=== PATIENT | female | born 1990 | race Hispanic/Latino ===

== ENCOUNTER 2017-06-19 10:35 | Emergency (ER) | payer MEDICAID ==
[~2017-06-19 10:35] MED LIST: DOCU-116 PO; MO8B PO; PREN1TAB89 PO; VALA10002 PO
[2017-06-19 11:18] LABS: BASOPHILS % (AUTO) 0.5 % (0.0-5.0); EOSINOPHILS % (AUTO) 0.9 % (0.0-8.0); HEMATOCRIT 41.2 % (36-48); LYMPHOCYTES % (AUTO) 14.3 % (21.0-51.0); MEAN CORPUSCULAR HEMOGLOBIN 33.7 pg (27.0-33.0); MEAN CORPUSCULAR HGB CONC 35.5 g/dL (32.0-36.0); MEAN CORPUSCULAR VOLUME 94.9 fL (79-99); MONOCYTES % (AUTO) 8.1 % (3.0-13.0); NEUTROPHILS % (AUTO) 76.2 % (40.0-77.0); PLATELET COUNT (AUTO) 172 K/uL (130-400); RED BLOOD CELL COUNT(AUTO) 4.34 MIL/uL (4.00-5.50); RED CELL DISTRIBUTION WIDTH 13.4 % (11.0-15.5)
[2017-06-19 11:33] LABS: CREATININE 0.6 mg/dL (0.5-1.5); POTASSIUM 3.8 mmol/L (3.5-5.1)
[2017-06-19 11:58] LABS: APPEARANCE,URINE Clear (CLEAR); BILIRUBIN,URINE Negative (NEGATIVE); COLOR,URINE Yellow (YELLOW); GLUCOSE, URINE (UA) Negative (NEGATIVE); KETONES,URINE 15 mg/dL (NEGATIVE); LEUKOCYTE ESTERASE ,URINE Negative (NEGATIVE); NITRATE,URINE Negative (NEGATIVE); OCCULT BLOOD,URINE Negative (NEGATIVE); PH,URINE 7.5 (5.0-8.0); PROTEIN,URINE Negative (NEGATIVE); UROBILINOGEN,URINE 0.2 mg/dL (0.2-1.0)
[2017-06-19 12:01] LABS: ALBUMIN 3.8 g/dL (3.5-5.0); BILIRUBIN,TOTAL 0.5 mg/dL (0.2-1.0); TOTAL PROTEIN, SERUM 7.8 g/dL (6.0-8.3)
[2017-06-19 12:12] LABS: BACTERIA,URINE Rare /HPF (None Seen); SQUAMOUS EPITHELIAL CELL,UR Rare /HPF (0-2)
== END 2017-06-19 12:29 | disposition home or self-care (01) ==
LOC: EDH 10:35
DX: O20.0 Threatened abortion (principal); Z3A.08 8 weeks gestation of pregnancy
CPT/HCPCS: 36415; 76817; 80053; 81001; 84702; 85025; 86900; 86901

== ENCOUNTER 2017-08-13 05:35 | Observation (INO) | payer MEDICAID ==
[2017-08-10 12:20] VITALS: BP 91/50
[2017-08-10 12:23] LABS: BASOPHILS % (AUTO) 0.3 % (0.0-5.0); EOSINOPHILS % (AUTO) 0.6 % (0.0-8.0); HEMATOCRIT 38.7 % (36-48); LYMPHOCYTES % (AUTO) 18.7 % (21.0-51.0); MEAN CORPUSCULAR HEMOGLOBIN 32.9 pg (27.0-33.0); MEAN CORPUSCULAR HGB CONC 34.4 g/dL (32.0-36.0); MEAN CORPUSCULAR VOLUME 95.8 fL (79-99); NEUTROPHILS % (AUTO) 73.4 % (40.0-77.0); PLATELET COUNT (AUTO) 173 K/uL (130-400); RED BLOOD CELL COUNT(AUTO) 4.04 MIL/uL (4.00-5.50); RED CELL DISTRIBUTION WIDTH 13.3 % (11.0-15.5); WHITE BLOOD COUNT (AUTO) 7.9 K/uL (4.8-10.8)
[~2017-08-13] VITALS: Ht 160 cm; Wt 77.4 kg
[~2017-08-13 05:35] MED LIST changes: -DOCU-116 PO; -MO8B PO; -VALA10002 PO
[2017-08-13] MEDS ORDERED: LACTATED RINGERS 1000ML 1,000 ML IV ONE ×2 (06:16→18:07)
[2017-08-13] MEDS ORDERED: CEFAZOLIN SODIUM 1 GM VIAL ONE (06:16)
[2017-08-13 06:27] VITALS: BP 96/49
[2017-08-13 06:50] VITALS: BP 134/60
[2017-08-13] MEDS ORDERED: SENSORCAINE/DEXT/PF 0.75% 2ML AMP IJ ONE (07:32)
[2017-08-13] MEDS ORDERED: CEFAZOLIN SODIUM 1 GM VIAL IVP ONE (07:45)
[2017-08-13] MEDS ORDERED: ONDANSETRON HCL 4 MG/2 ML VIAL ONE (07:57)
[2017-08-13] MEDS ORDERED: CALCIUM GLUCONATE 1 GM/10 ML VIAL IV PRN (08:15)
[2017-08-13] MEDS ORDERED: MAGNESIUM 4GM PREMIX 100ML 100 ML IV ONE (08:33)
[2017-08-13] MEDS ORDERED: MAGNESIUM SULFATE 1,000 ML IV ONE (08:33)
[2017-08-13] MEDS ORDERED: MAGNESIUM 4GM PREMIX 100ML 100 ML IV SCH (08:51)
[2017-08-14] MEDS ORDERED: MAGNESIUM SULFATE 1,000 ML IV PRN ×2 (03:00→07:00)
[2017-08-14] MEDS ORDERED: MAGNESIUM SULFATE 1,000 ML IV ONE (03:18)
[2017-08-14] MEDS ORDERED: LACTATED RINGERS 1000ML 1,000 ML IV PRN (09:00)
== END 2017-08-14 10:15 | disposition home or self-care (01) ==
LOC: DAHIP 05:35 → LDH 07:30
PROVIDERS: ADMIT Obstetrics & Gynecology; ATTEND Obstetrics & Gynecology
DX: O34.32 Maternal care for cervical incompetence, second trimester (principal); Z3A.16 16 weeks gestation of pregnancy
CPT/HCPCS: 36415; 59320; 85025; 86850; 86900; 86901; 96365; 96366; A4218; A4510; A4600; A4606; G0378 ×30; J0690 ×2; J2405; J3475 ×3; J3490; J7120 ×3

== ENCOUNTER 2017-12-31 01:47 | Observation (INO) | payer MEDICAID ==
[~2017-12-31] VITALS: Ht 160 cm; Wt 91.2 kg
[2017-12-31] MEDS ORDERED: LACTATED RINGERS 1000ML 1,000 ML IV PRN (02:05)
[2017-12-31 02:46] LABS: APPEARANCE,URINE Clear (CLEAR); BILIRUBIN,URINE Negative (NEGATIVE); COLOR,URINE Yellow (YELLOW); GLUCOSE, URINE (UA) Negative (NEGATIVE); KETONES,URINE 15 mg/dL (NEGATIVE); LEUKOCYTE ESTERASE ,URINE Moderate (NEGATIVE); NITRATE,URINE Negative (NEGATIVE); OCCULT BLOOD,URINE Negative (NEGATIVE); PROTEIN,URINE Negative (NEGATIVE)
[2017-12-31 03:05] LABS: BACTERIA,URINE Few /HPF (None Seen); RBC,URINE 0-1 /HPF (0-1)
[2017-12-31] MEDS ORDERED: TERBUTALINE SULFATE VIAL 1MG/ML SQ ONE (03:45)
[2017-12-31] MEDS ORDERED: TERBUTALINE SULFATE VIAL 1MG/ML SQ PRN (03:45)
[2017-12-31] MEDS ORDERED: LACTATED RINGERS 1000ML 2,000 ML IV ONE (03:45)
== END 2017-12-31 06:25 | disposition home or self-care (01) ==
LOC: EDH 01:47 → LDH 01:48
PROVIDERS: ADMIT Obstetrics & Gynecology; ATTEND Obstetrics & Gynecology
DX: O60.03 Preterm labor without delivery, third trimester (principal); O62.9 Abnormality of forces of labor, unspecified; O26.893 Other specified pregnancy related conditions, third trimester; R10.9 Unspecified abdominal pain; Z3A.36 36 weeks gestation of pregnancy
CPT/HCPCS: 81001; 96372; 99285; G0378 ×5; J3105; J7120; 96360; 96361